=== PATIENT | female | born 1985 | race African-American/Black ===

== ENCOUNTER 2016-11-23 22:57 | Inpatient (IN) | payer OTHER ==
--- NOTE | ~2016-11-23 | US67 ---
[facility] A Service of [facility] RADIOLOGY TEXT RESULTS PATIENT: ASHLIE CHOWDHURY LOCATION: A 225-01 : 85 UNIT #: [id number] AGE: [address]: Felicia Beltrán MD SEX: F ORDER DR: [id number] [facility] [address] [place], [place] [address] [id number] I MR#: [id number] #: [id number] NAME: ASHLIE CHOWDHURY : 1985 SEX: F STUDY DATE/TIME: 11/24/2016 9:19 UNIT: [facility] ROOM: [facility] STUDY DESCRIPTION: US Gallbladder Attending Physician: Felicia Beltrán M.D. Ordering Physician: Leroy Velazquez M.D. Primary Care Physician: Primary Care Physician No MEDICAL IMAGING REPORT This report is preliminary unless electronic signature is present EXAM Right upper quadrant ultrasound INDICATION Right upper quadrant pain, nausea and vomiting for 2 weeks but worse in the last 3 days. TECHNIQUE Buckley-scale imaging in the right upper quadrant structures was performed and compared with CT of the abdomen and pelvis from earlier today. FINDINGS The liver is normal in echogenicity. There is no intrahepatic biliary ductal dilatation. The common duct is normal in size measuring about 4 mm. The gallbladder wall is thickened measuring up to 1.2 cm in maximal thickness. The prescription clerk reports a positive sonographic Del Rosario's sign. No shadowing gallstones are noted. The right kidney is within normal limits. Pancreas not visualized due to overlying bowel gas. IMPRESSION There is gallbladder wall thickening and a positive sonographic Del Rosario's sign. There were not any shadowing gallstones demonstrated however, when correlating with the findings on the CT from earlier today the findings on the ultrasound, particularly with the positive sonographic Del Rosario's sign, do raise concern for acute cholecystitis. Dictated by... Mike Campos M.D. THIS IS AN ELECTRONICALLY VERIFIED REPORT Mike Campos M.D. at 11/25/2016 2:19 PM [facility] A Service of [facility] RADIOLOGY TEXT RESULTS PATIENT: ASHLIE CHOWDHURY LOCATION: [facility] 225-01 : 85 UNIT #: [id number] AGE: [address]: Felicia Beltrán MD SEX: F ORDER DR: Emmett TD: 11/24/2016 23:08 JOB #: [id number] MEDICAL IMAGING REPORT Page 1 of 1 COPY
--- NOTE | ~2016-11-23 | HP ---
Unit #: [id number] #: [id number] Patient: ASHLIE CHOWDHURY [id number] [address] [place], [place] [address] [id number] I MR#: [id number] NAME: ASHLIE CHOWDHURY ROOM: 225 Age: 31 Sex: F Admission Date: 11/24/2016 : 1985 Attending Physician: Felicia Beltrán M.D. Primary Care Physician: No Primary Care Physician HISTORY AND PHYSICAL CHIEF COMPLAINT Abdominal pain. HISTORY OF PRESENT ILLNESS The patient states she has had 10 days of right upper quadrant pain. The first 8 days it was intermittent; however, over the past 2 days it has been constant and severe, associated with fevers, nausea and vomiting but no diarrhea, made better with pain medications provided in the emergency department. PAST MEDICAL HISTORY None. PAST SURGICAL HISTORY I and D of an abscess. SOCIAL HISTORY The patient smokes. Denies alcohol use but does admit to IV drug abuse. FAMILY HISTORY No significant past medical family history. ALLERGIES Benadryl. HOME MEDICATIONS None. REVIEW OF SYSTEMS A 10-point review of systems was obtained; negative except as per HPI. PHYSICAL EXAMINATION VITAL SIGNS: Temperature 98.3, pulse 93, blood pressure 127/88. GENERAL: This a 31-year-old female in no acute distress, appears stated age. HEENT: Pupils are equally round. Extraocular movements intact. Mucous membranes dry. NECK: Supple. No JVD. No lymphadenopathy. CARDIAC: Regular rate and rhythm. No murmurs, gallops or rubs. LUNGS: Clear to auscultation bilaterally. ABDOMEN: Diffusely tender to palpation, greatest in the right upper quadrant. She is nondistended, soft. EXTREMITIES: No clubbing, cyanosis or edema. They are warm and dry. PSYCHIATRIC: Alert and oriented x3. Affect is appropriate. Unit #: [id number] #: [id number] Patient: ASHLIE CHOWDHURY NEUROLOGIC: Cranial nerves II-XII intact grossly. The patient moves all extremities equally and with purpose. SKIN: No rashes, bruises or ulcers. MUSCULOSKELETAL: No muscle or joint pain. No muscle or joint swelling. DIAGNOSTIC STUDIES LABORATORIES: Patient's bilirubin is elevated at 5.8, direct 3.3, indirect 1.9, alkaline phosphatase 150, AST is 630, ALT is 731. White count is 12.9. IMAGING: CT of the abdomen shows acute cholecystitis. ASSESSMENT AND PLAN 1. Acute cholecystitis. Patient has been started on Zosyn by surgery. This will continue, and the patient will ultimately be taken for cholecystectomy. 2. Prophylaxis. Patient has been started on SCDs. 3. IV drug abuse. Patient has p.r.n. morphine for pain. Should she withdraw, consideration should be given to withdrawal protocol. 1. Dictated by Thiago Rivers M.D. ASHA/clemente TD: 11/25/2016 08:07 JOB #: [id number] HISTORY AND PHYSICAL Page 1 of 1 X Thiago Rivers MD X HISTORY AND PHYSICAL
--- NOTE | ~2016-11-23 | OR ---
Unit #: [id number] #: [id number] Patient: ASHLIE CHOWDHURY [id number] [address] [place], [place] [address] [id number] I MR#: [id number] NAME: ASHLIE CHOWHDURY ROOM: [facility] Date of Procedure: 11/25/2016 Admission Date: 11/24/2016 Surgeon: Ole Cannon M.D. : 1985 Attending Physician: Felicia Beltrán M.D. OPERATIVE REPORT PRIMARY CARE PHYSICIAN Thiago Rivers M.D. PREOPERATIVE DIAGNOSES The patient presented with history of mid sternal and upper abdominal pain along with elevated LFTs and ultrasound changes of acute cholecystitis. There is no biliary ductal dilation. The patient does have underlying hepatitis C. The purpose of the endoscopic retrograde cholangiopancreatography is to look for any common bile duct stones and clear the common bile duct of any stones. PROCEDURES PERFORMED Upper gastrointestinal endoscopy and endoscopic retrograde cholangiopancreatography. POSTOPERATIVE DIAGNOSES The patient has mild antral gastritis on a preliminary upper gastrointestinal endoscopy. Endoscopic retrograde cholangiopancreatography was normal with normal cholangiogram. The common bile duct was about 3 to 4 mm in size throughout. The common bile duct was swept with a 9 mm balloon and no debris or stones were seen or delivered. The patient had a normal occlusion cholangiogram. No sphincterotomy was performed. RECOMMENDATIONS The patient will undergo laparoscopic cholecystectomy tomorrow. Incidentally, the cystic duct was patent. SEDATION USED General anesthesia. DESCRIPTION OF PROCEDURE The patient was initially given MAC, but was quite agitated and was impossible to sedate with propofol. She was therefore intubated by Anesthesia and placed in appropriate left lateral decubitus position. A preliminary upper GI endoscopy was demonstrated pre-pyloric antral erosions and antral gastritis. The lateral viewing duodenoscope was then advanced through the oral cavity into the esophagus and advanced into the stomach. Pylorus was intubated in usual fashion. The scope was advanced in deep descending duodenum. Upon shortening the scope, major papilla and ampullary area was visualized en face. Using guidewire based cannulation, common bile duct was cannulated in the first attempt. The cholangiogram Unit #: [id number] #: [id number] Patient: ASLHIE CHOWDHURY was obtained, which appeared to show a normal common bile duct about 4 mm in size. We then passed a retrieval balloon and at 9 mm setting, the duct was swept 2 to 3 times. No filling defects or debris or stones were delivered. The cystic duct was widely patent. The gallbladder was now straight. The scope and the accessories were then withdrawn. The patient returned to recovery area. She tolerated the procedure without any postprocedure complications. Dictated by... Gayathri Durbin/kate TD: 11/26/2016 04:20 JOB #: [id number] CC: Thiago Rivers M.D. OPERATIVE REPORT Page 1 of 1 X Ole Cannon MD X PROCEDURE OPERATIVE NOTE
--- NOTE | ~2016-11-23 | CR84 ---
[facility] A Service of [facility] & [facility] RADIOLOGY TEXT RESULTS PATIENT: ASHLIE CHOWDHURY LOCATION: [facility] 225-01 : 85 UNIT #: [id number] AGE: [address]: Felicia Beltrán MD SEX: F ORDER DR: [id number] [facility] [address] [place], [place] [address] [id number] I MR#: [id number] Acc #: [id number] NAME: ASHLIE CHOWDHURY : 1985 SEX: F STUDY DATE/TIME: 11/25/2016 14:26 UNIT: [facility] ROOM: [facility] STUDY DESCRIPTION: CR ERCP Biliary and Pancr SI Attending Physician: Felicia Beltrán M.D. Ordering Physician: Ole Cannon M.D. Primary Care Physician: No Primary Care Physician MEDICAL IMAGING REPORT This report is preliminary unless electronic signature is present EXAM ERCP (interpretation only) HISTORY SUPPLIED Right upper quadrant pain and abnormal liver enzymes. Seven views are submitted. Total fluoroscopy time 57 seconds. Exam was performed by Dr. Cannon. The examination shows a normal injections of the common duct and filling of the gallbladder. The balloon sweep was performed. Please see Dr. Cannon's operative note. CONCLUSION Essentially normal common duct injection. Dictated by... Jerome Yates M.D. THIS IS AN ELECTRONICALLY VERIFIED REPORT Jerome Yates M.D. at 11/26/2016 7:29 AM MINOR/samuel TD: 11/25/2016 23:55 JOB #: [id number] MEDICAL IMAGING REPORT Page 1 of 1 COPY
--- NOTE | ~2016-11-23 | CO ---
Unit #: [id number] #: [id number] Patient: ASHLIE CHOWDHURY [id number] [address] [place], [place] [address] [id number] I MR#: [id number] NAME: ASHLIE CHOWDHURY ROOM: 225 Age: 31 Sex: F Admission Date: 11/24/2016 : 1985 Attending Physician: Felicia Beltrán M.D. Primary Care Physician: Primary Care Physician No Consultation Date: 11/24/2016 CONSULTATION REPORT PRIMARY CARE PHYSICIAN Thiago Rivers M.D. REASON FOR CONSULTATION Upper abdominal pain and abnormal LFTs. HISTORY OF PRESENT ILLNESS Ms. Chowdhury is a 31-year-old female, who lives with her father. The patient is not working. She presented with history of intense severe lower sternal and upper epigastric pain along with nausea and vomiting. The pain was quite intense and continuous. She has had similar episodes in the past few weeks that resolved spontaneously after a few hours. The patient does smoke cigarettes, does not drink alcohol, and use intravenous heroin almost on a daily basis. PAST MEDICAL HISTORY Significant for abscess in the right buttock which was drained, and history of intravenous drug use as mentioned above. PAST SURGICAL HISTORY Included abscess drainage as mentioned above. SOCIAL HISTORY Almost daily uses intravenous heroin. The patient does smoke a pack and a half daily. Does not drink alcohol. FAMILY HISTORY Coronary artery disease and cancer. ALLERGIES She is allergic to ciprofloxacin and does not take any home medications. REVIEW OF SYSTEMS Detailed review of organ systems does not reveal any recent weight loss. No history of fever, chills, or rigors. No history of headache, seizures, or syncope. No history of cough, expectoration, or hemoptysis. No history of dysuria, hematuria, or pyuria. No history focal seizures or extremity weakness. Rest of the review of organ systems is unremarkable. PHYSICAL EXAMINATION GENERAL: She is alert and oriented, and appears to be in minimal pain in the lower sternal area. VITAL SIGNS: Stable with a temperature of 97.9, pulse 70 per minute and regular, respiratory rate is 15, blood pressure 107/63. She weighs 159 Unit #: [id number] #: [id number] Patient: ASHLIE CHOWDHURY pounds. Her baseline weight has been about 170 to 180 pounds in the past. HEENT: She has mild pallor. There being mild tinge of icterus. No lymphadenopathy or peripheral edema. CARDIOVASCULAR: Normal heart sounds. No murmurs on auscultation. LUNGS: Reveal normal breath sounds. Good air entry. ABDOMEN: Soft. There being mild localized tenderness in the epigastric area and right in the upper quadrant. Liver and spleen are not palpable. Bowel sounds normal. Hernia sites were also normal. DIAGNOSTIC STUDIES LABORATORY RESULTS: Shows a white count of 12,900 with left shift, hemoglobin and hematocrit are normal and platelet count is also normal. Serum chemistry shows a normal BUN and creatinine, and electrolytes, with the peak abnormalities includes total bilirubin of 5.8, baseline bilirubin was 0.5. Peak AST and ALT are 730 and 805 respectively and these baseline values were normal couple of years ago. Alkaline phosphatase is 167 and again baseline was normal. Lipase is normal. The tox screen is positive for opiates. Urinalysis shows 1+ leukocyte esterase positive, and 2+ bacteria. The patient's hepatitis serology for hepatitis C is positive. The patient had a CT scan of the abdomen that suggest acute cholecystitis. An ultrasound is pending. CLINICAL IMPRESSION 1. The patient most likely has common bile duct stone along with cholecystitis. She needs clearance of common bile duct followed by laparoscopic cholecystectomy. The above plan was discussed with the patient and the procedure will be done tomorrow. 2. Background history of intravenous drug use. 3. Chronic hepatitis C, most likely acquired from intravenous drug use. 4. Urinary tract infection. MANAGEMENT PLAN We will obtain surgical consult for cholecystectomy after common bile duct clearance and endoscopic retrograde cholangiopancreatography will be done tomorrow. The pros and cons of procedure, potential risks, complications including possibility of perforation, bleeding, and complication related to sedation, and pancreatitis were discussed with the patient. Thank you for asking me to see Ms. Chowdhury. I appreciate the consult. Dictated by... Gayathri Durbin/kate TD: 11/25/2016 01:12 JOB #: [id number] Unit #: [id number] #: [id number] Patient: ASHLIE CHOWDHURY CONSULTATION REPORT Page 1 of 1 X Ole Cannon MD CONSULTATION REPORT
--- NOTE | ~2016-11-23 | CT2 ---
[facility] A Service of [facility] & [facility] RADIOLOGY TEXT RESULTS PATIENT: ASHLIE CHOWDHURY LOCATION: C2A 225- : 85 UNIT #: [id number] AGE: [address]: Felicia Beltrán MD SEX: F ORDER DR: [id number] [facility] [address] [place], [place] [address] [id number] I MR#: [id number] Acc #: [id number] NAME: ASHLIE CHOWDHURY : 1985 SEX: F STUDY DATE/TIME: 11/24/2016 02:03 UNIT: C2A ROOM: 225 STUDY DESCRIPTION: CT Abd and Pelv W Cont Attending Physician: Felicia Beltrán M.D. Ordering Physician: Marcel Vega M.D. Primary Care Physician: No Primary Care Physician MEDICAL IMAGING REPORT This report is preliminary unless electronic signature is present EXAM CT abdomen and pelvis, 11/24 at 02:03 INDICATIONS Nausea, vomiting, abdominal pain over the last 2 weeks but worse over the last 2 days. TECHNIQUE Axial images were obtained through the abdomen and pelvis following oral and IV contrast administration. Multiplanar reformats were obtained. Comparison made with CT abdomen from 01/16/[address] pelvis from 07/30/2015. This CT exam was performed with one or more of the following radiation dose reduction techniques: Automatic exposure control, adjustment of mA and/or kV according to patient size, and iterative reconstruction. FINDINGS ABDOMEN: Lung bases are clear. Gallbladder is markedly abnormal. There is gallbladder wall edema and gallbladder wall thickening. Findings are highly suspicious for acute cholecystitis. Follow up with gallbladder ultrasound and/or HIDA scan recommended. There is no biliary obstruction. Solid abdominal organs are normal. The GI tract is normal. No adenopathy identified. PELVIS: Urinary bladder is normal. Solid pelvic organs are normal. Feculent material is seen in distal small bowel loops, suggesting ileus. The lower colon and appendix appear normal. IMPRESSION 1. Markedly abnormal-appearing gallbladder with wall thickening. This is worrisome for acute cholecystitis. Follow up with gallbladder ultrasound and/or HIDA scan recommended. 2. Feculent material in multiple distal small bowel loops in the STS. [facility] A Service of [facility] & [facility] RADIOLOGY TEXT RESULTS PATIENT: ASHLIE CHOWDHURY LOCATION: C2A 225-01 : [birth year] UNIT #: [id number] AGE: [address]: Felicia Beltrán MD SEX: F ORDER DR: pelvis, suggesting an ileus. The colon and appendix appear normal. Dictated by... Homer Pimentel Jr., M.D. THIS IS AN ELECTRONICALLY VERIFIED REPORT Homer Pimentel Jr., M.D. at 11/24/2016 9:23 PM RICKY/jose TD: 11/24/2016 19:08 JOB #: [id number] MEDICAL IMAGING REPORT Page 1 of 1 COPY
--- NOTE | ~2016-11-23 | DS ---
Unit #: [id number] #: [id number] Patient: ASHLIE CHOWDHURY [id number] [address] [place], [place] [address] [id number] I MR#: [id number] NAME: ASHLIE CHOWDHURY ROOM: 225 Age: Sex: F Admission Date: 11/24/2016 : 1985 Discharge Date: 11/25/2016 Attending Physician: Felicia Beltrán M.D. Primary Care Physician: Primary Care Physician No DISCHARGE SUMMARY PRINCIPAL DIAGNOSES 1. Acute cholecystitis. 2. Presumed obstructive jaundice. 3. Transaminitis secondary to #1 and #2. 4. Intravenous drug abuse, namely heroin. 5. Tobaccoism. CONSULTANTS 1. Dr. Cannon, gastroenterology. 2. LSA. PROCEDURES ERCP on November 25, 2016, with mild antral gastritis on EGD. Common bile duct was 3-4 mm. Common bile duct was swept without any evidence of debris or stone. Normal occlusion cholangiogram. No sphincterotomy performed. DIAGNOSTIC STUDIES IMAGING: Right upper quadrant ultrasound on November 24, 2016, with gallbladder wall thickening and positive sonographic Del Rosario sign. No evidence of gallstones, however. CT of the abdomen and pelvis with contrast on November 24, 2016, with abnormal appearing gallbladder with wall thickening concerning for cholecystitis. Feculent material in multiple distal small bowel loops concerning for ileus. CLINICAL HISTORY AND HOSPITAL COURSE Ms. Chowdhury is a 31-year-old, -[place] female who presents to the emergency department with complaints of abdominal pain. Please refer to H and P for further details. Blood work in the emergency department revealed an elevated bilirubin of 5.8 in addition to significant transaminitis. White blood cell count was mildly elevated at 13,000. CT scan of the abdomen and pelvis revealed acute cholecystitis and patient was subsequently admitted. LSA was consulted initially. There were concerns about possible obstructive jaundice given patient's transaminitis and elevated bilirubin. Dr. Cannon was consulted and patient subsequently underwent ERCP. Fortunately, no obstructive stone was noted. There are plans for a laparoscopic cholecystectomy on November 27; however, following patient's ERCP, she ultimately decided she did not wish to stay and left the hospital against medical advice. No prescriptions were given. Unit #: [id number] #: [id number] Patient: ASHLIE CHOWDHURY Dictated by... Gayathri Ryder/brian TD: 11/27/2016 08:41 JOB #: [id number] DISCHARGE SUMMARY Page 1 of 1 X Gosia Sim MD X DISCHARGE SUMMARY
--- NOTE | ~2016-11-23 | CO ---
Unit #: [id number] #: [id number] Patient: ASHLIE CHOWDHURY [id number] [address] [place], [place] [address] [id number] I MR#: [id number] NAME: ASHLIE CHOWDHURY ROOM: 225 Age: 31 Sex: F Admission Date: 11/24/2016 : 1985 Attending Physician: Felicia Beltrán M.D. Consultation Date: 11/24/2016 CONSULTATION REPORT HISTORY OF PRESENT ILLNESS Ms. Chowdhury is a pleasant 31-year-old female with a several-day history of nausea, vomiting, fever, and abdominal pain, who subsequently developed jaundice. She came to the emergency room. A CT scan was consistent with acute cholecystitis with marked gallbladder wall thickening and pericholecystic fluid. She was noted to have markedly elevated liver chemistries with a total bilirubin of 5.8. Lipase was normal. Followup ultrasound confirmed acute cholecystitis. She has been seen by Dr. Cannon, who plans an ERCP in the morning. She denies any hematemesis or melena. PAST MEDICAL HISTORY Heroin abuse; previous buttock abscess, requiring incision, drainage and debridement. ALLERGIES She is allergic to ciprofloxacin and Benadryl. MEDICATIONS She is not currently on any prescription medications. SOCIAL HISTORY She smokes tobacco and has a history of IV drug abuse. FAMILY HISTORY She is unaware of any chronic or inheritable diseases. REVIEW OF SYSTEMS As above. PHYSICAL EXAMINATION VITAL SIGNS: Temperature is 98.1, pulse 80, respirations 15, blood pressure 97/58. GENERAL: She is awake, alert, oriented, cooperative, very pleasant. HEENT: Scleral icterus. Otherwise, unremarkable. CARDIAC: Regular rhythm. LUNGS: Clear. ABDOMEN: She guards in the upper abdomen, particularly in the right upper quadrant and there is a mass effect on deep palpation. She has involuntary guarding, but no rebound. EXTREMITIES: No edema. NEUROLOGIC: Grossly intact. SKIN: No skin rash or lesions. DIAGNOSTIC STUDIES Unit #: [id number] #: [id number] Patient: ASHLIE CHOWDHURY LABORATORY RESULTS: Basic metabolic panel was within normal limits. Total bilirubin is 5.8, AST 630, ALT 731, alkaline phosphatase 150. Lipase 19. White count 12,900, hemoglobin 12.7, platelets 199,000. Urinalysis shows 10 to 25 white cells, but otherwise is nitrite negative. She does have a bile in her urine. IMAGING STUDIES: CT scan and ultrasound were reviewed. ASSESSMENT AND PLAN Acute cholecystitis with obstructive jaundice. She is scheduled for ERCP in the morning to clear her common bile duct. She has marked wall thickening and pericholecystic fluid consistent with severe acute cholecystitis. She will need a post ERCP cholecystectomy. Because of the severity of her cholecystitis even though she has had no prior abdominal surgery, she will be at an increased risk for open cholecystectomy. I have discussed this with the patient. We will follow her up after her ERCP has been completed. Dictated by... Gayathri Meeks/kate TD: 11/24/2016 18:36 JOB #: [id number] CONSULTATION REPORT Page 1 of 1 X Homer Ochoa MD X CONSULTATION REPORT
[~2016-11-23 22:57] MED LIST: BACTRIM DS TABL1 TA1 PO; CIPRO PO; COL-RITE50 MG PO; DAKIN'S MODIF1000 ML EXT; NO MEDICATIONS; OMNICEF PO; PERCOCET 10/3251 TAB PO; PERCOCET5/325 PO; PYRIDIUM PO; SILVADENE TOP; VICODIN 5/500 T1 TAB PO; VOLTAREN75 MG PO; ZYVOX600 MG PO
[2016-11-23 23:55] LABS: URINE SOURCE CLEAN CATCH
[2016-11-23 23:58] LABS: BASOPHIL# 0.1 X10e3 (0-0.3); BASOPHIL% 0.5 % (0-2.5); EOSINOPHIL# 0.1 X10e3 (0-0.7); EOSINOPHIL% 0.9 % (0.0-7.0); HEMATOCRIT 41.2 % (35.0-45.0); HEMOGLOBIN 13.5 gm/dL (12.0-16.0); LYMPHOCYTE# 3.2 X10e3 (1.0-3.5); LYMPHOCYTE% 27.7 % (17.0-45.0); MEAN CELL VOLUME 77.9 FL (83-96); MEAN CORPUSCULAR HEMOGLOBIN 25.5 PG (28-34); MEAN CORPUSCULAR HGB CONC 32.8 g/dL (30-36); MONOCYTE# 0.7 X10e3 (0-1.0); MONOCYTE% 5.8 % (3.0-12.0); NEUTROPHIL# 7.5 X10e3 (1.5-7.1); NEUTROPHIL% 65.1 % (40-75); PLATELET COUNT 216 X10e3 (140-420); RED BLOOD COUNT 5.28 X10e (3.90-5.30); RED CELL DISTRIBUTION WIDTH 17.9 % (11.0-15.5); WHITE BLOOD COUNT 11.5 X10e3 (4.0-10.5)
[2016-11-23 23:59] LABS: URINE APPEARANCE CLOUDY; URINE BLOOD NEG (NEG); URINE COLOR DK YELLOW; URINE GLUCOSE NEG (NEG); URINE KETONE NEG (NEG); URINE LEUKOCYTE ESTERASE 1+ (NEG); URINE NITRATE NEG (NEG); URINE PH 6.5 (5-8); URINE PROTEIN NEG (NEG); URINE SPECIFIC GRAVITY 1.021 (1.003-1.035)
[2016-11-24 00:01] LABS: DIFF IND NO
[2016-11-24 00:02] LABS: CULTURE INDICATED? YES; U HYALINE CASTS AUWI 0-2 /[LPF]; URINE BACTERIA AUWI 2+ (NEGATIVE); URINE SQUAMOUS EPITHELIAL CELL FEW /[HPF]
[2016-11-24 00:05] LABS: URINE BILIRUBIN POS (NEG)
[2016-11-24 00:26] LABS: ALBUMIN SERUM 3.5 g/dL (3.5-5.0); BILIRUBIN, DIRECT 3.3 mg/dL (0.0-0.2); BILIRUBIN,INDIRECT 1.9 mg/dL (0.0-0.9); BILIRUBIN,TOTAL 5.2 mg/dL (0.2-2.0); BUN/CREATININE RATIO 11.66; CALCIUM SERUM 8.5 mg/dL (8.4-10.2); CREATININE SERUM 0.6 mg/dL (0.6-1.4); GLOM FILT RATE Estimated 140.8 mL/min (>60); POTASSIUM 3.5 mmol/L (3.5-5.1)
[2016-11-24 07:39] LABS: BASOPHIL% 0.2 % (0-2.5); EOSINOPHIL# 0.2 X10e3 (0-0.7); EOSINOPHIL% 1.4 % (0.0-7.0); HEMATOCRIT 39.6 % (35.0-45.0); HEMOGLOBIN 12.7 gm/dL (12.0-16.0); LYMPHOCYTE# 3.1 X10e3 (1.0-3.5); LYMPHOCYTE% 24.2 % (17.0-45.0); MEAN CELL VOLUME 79.8 FL (83-96); MEAN CORPUSCULAR HEMOGLOBIN 25.5 PG (28-34); MEAN CORPUSCULAR HGB CONC 31.9 g/dL (30-36); MEAN PLATELET VOLUME 9.7 FL (6.5-11.5); MONOCYTE# 0.6 X10e3 (0-1.0); MONOCYTE% 4.6 % (3.0-12.0); NEUTROPHIL% 69.6 % (40-75); PLATELET COUNT 199 X10e3 (140-420); RED BLOOD COUNT 4.97 X10e (3.90-5.30); WHITE BLOOD COUNT 12.9 X10e3 (4.0-10.5)
[2016-11-24 07:44] LABS: DIFF IND NO
[2016-11-24 08:16] LABS: ALBUMIN SERUM 3.3 g/dL (3.5-5.0); BILIRUBIN,TOTAL 5.8 mg/dL (0.2-2.0); CALCIUM SERUM 8.5 mg/dL (8.4-10.2); CREATININE SERUM 0.5 mg/dL (0.6-1.4); GLOM FILT RATE Estimated 149.5 mL/min (>60); PROTEIN TOTAL SERUM 7.4 g/dL (6.0-8.3)
[2016-11-25 05:03] LABS: HEMATOCRIT 37.3 % (35.0-45.0); HEMOGLOBIN 12.2 gm/dL (12.0-16.0); MEAN CELL VOLUME 78.7 FL (83-96); MEAN CORPUSCULAR HEMOGLOBIN 25.8 PG (28-34); MEAN CORPUSCULAR HGB CONC 32.8 g/dL (30-36); MEAN PLATELET VOLUME 9.5 FL (6.5-11.5); RED BLOOD COUNT 4.74 X10e (3.90-5.30); RED CELL DISTRIBUTION WIDTH 17.7 % (11.0-15.5); WHITE BLOOD COUNT 5.9 X10e3 (4.0-10.5)
[2016-11-25 05:50] LABS: ALBUMIN SERUM 2.8 g/dL (3.5-5.0); ALKALINE PHOSPHATASE 123 U/L (32-92); ALT (SGPT) 510 U/L (10-40); AMYLASE 20 U/L (0-46); AST (SGOT) 433 U/L (10-42); BILIRUBIN,TOTAL 5.6 mg/dL (0.2-2.0); CALCIUM SERUM 8.3 mg/dL (8.4-10.2); CARBON DIOXIDE 25 mmol/L (22-31); CHLORIDE 107 mmol/L (100-111); CREATININE SERUM 0.5 mg/dL (0.6-1.4); GLOM FILT RATE Estimated 149.5 mL/min (>60); GLUCOSE FASTING 92 mg/dL (70-110); LIPASE 17 U/L (22-51); PROTEIN TOTAL SERUM 6.6 g/dL (6.0-8.3); SODIUM 138 mmol/L (135-145)
[2016-11-25 05:51] LABS: BLOOD UREA NITROGEN <5 mg/dL (9-23)
[2016-11-25 13:30] LABS: IRON SERUM 124 ug/dL (28-170); TOTAL IRON BINDING CAPACITY 360 ug/dL (269-535); TRANSFERRIN 257 mg/dL (192-382); TRANSFERRIN SATURATION 34 % (20-50)
[2016-11-28 17:18] LABS: HA AB IGM (HEPPAN) Nonreactive (()); HB CORE AB IGM (HEPPAN) Reactive (Nonreactive); HB S AG (HEPPAN) Reactive (Nonreactive); HEP C AB (HEPPAN) Reactive (Nonreactive)
== END 2016-11-25 21:55 | disposition left against medical advice (07) | DRG 444 ==
LOC: CED 22:57 → CEDOF 11-24 03:08 → CED 11-24 03:36 → CEDOF 11-24 05:14 → C2A 11-24 05:14
PROVIDERS: Emergency Medicine; Internal Medicine; Internal Medicine Gastroenterology
PROC: 0F798ZZ Dilation of Common Bile Duct, Via Natural or Artificial Opening Endoscopic (ICD-10-PCS; principal; 2016-11-25 14:27)
PROC: 0DJ08ZZ Inspection of Upper Intestinal Tract, Via Natural or Artificial Opening Endoscopic (ICD-10-PCS; 2016-11-25 14:27)
DX: K81.0 Acute cholecystitis (principal); K83.1 Obstruction of bile duct; N39.0 Urinary tract infection, site not specified; R74.0 Nonspecific elevation of levels of transaminase and lactic acid dehydrogenase [LDH]; F11.10 Opioid abuse, uncomplicated; K29.70 Gastritis, unspecified, without bleeding; B18.2 Chronic viral hepatitis C; F17.210 Nicotine dependence, cigarettes, uncomplicated; Z88.1 Allergy status to other antibiotic agents; Z88.8 Allergy status to other drugs, medicaments and biological substances; Z82.49 Family history of ischemic heart disease and other diseases of the circulatory system; Z80.9 Family history of malignant neoplasm, unspecified; Z53.21 Procedure and treatment not carried out due to patient leaving prior to being seen by health care provider
CPT/HCPCS: 36415; 74177; 74330; 76705; 80048; 80053; 80074; 80076; 81003; 82150; 83540; 83550; 83690; 84703; 85025; 85027; 87086; 87522; 96361; 96374; 99291; C9113; J0295; J2250; J2270; J2405; J2543; J2710; Q9967

== ENCOUNTER 2017-01-27 15:59 | Emergency (ER) | payer OTHER ==
[~2017-01-27] VITALS: Ht 167.6 cm; Wt 77.1 kg
--- NOTE | ~2017-01-27 | CT4 ---
[facility] A Service of [facility] RADIOLOGY TEXT RESULTS PATIENT: ASHLIE CHOWDHURY LOCATION: [facility] : 85 UNIT #: [id number] AGE: [address]: Alvin Begum MD SEX: F ORDER DR: [id number] [facility] [address] [place], [place] [address] [id number] E MR#: [id number] Acc #: [id number] NAME: SAHLIE CHOWDHURY : 1985 SEX: F STUDY DATE/TIME: 01/27/2017 18:03 UNIT: [facility] ROOM: STUDY DESCRIPTION: CT Abd and Pelv Wo Cont Attending Physician: Alvin Begum M.D. Ordering Physician: Alvin Begum M.D. Primary Care Physician: No Primary Care Physician MEDICAL IMAGING REPORT This report is preliminary unless electronic signature is present EXAM CT abdomen and pelvis without contrast HISTORY Right flank pain since yesterday. TECHNIQUE CT abdomen and pelvis was performed without contrast. This CT exam was performed with one or more of the following radiation dose reduction techniques: Automatic exposure control, adjustment of mA and/or kV according to patient size, and iterative reconstruction. FINDINGS CT ABDOMEN: No renal calculi. No hydronephrosis or perinephric stranding. The liver is unremarkable. Small amount of gallbladder sludge. Gallbladder is partly contracted. No biliary dilatation. The spleen, pancreas, and adrenal glands are normal. Normal caliber abdominal aorta. No bowel dilatation. CT PELVIS: Normal appendix. There is a 4 mm metal foreign body in the right pelvis, probably in the cecum. This is probably an ingested foreign body. The uterus and adnexa are unremarkable. Urinary bladder is normal. IMPRESSION 1. No acute findings in the abdomen or pelvis. 2. No urinary calculi or obstruction. 3. Normal appendix. 4. Small punctate metal foreign body in the right pelvis is probably within the cecum and is probably an ingested foreign body. Dictated by... Joaquín Dawson M.D. [facility] A Service of [facility] RADIOLOGY TEXT RESULTS PATIENT: ASHLIE CHOWDHURY LOCATION: [facility] : 85 UNIT #: [id number] AGE: [address]: Alvin Begum MD SEX: F ORDER DR: THIS IS AN ELECTRONICALLY VERIFIED REPORT Joaquín Dawson M.D. at 01/28/2017 2:20 PM BERTHA/nabor TD: 01/28/2017 12:28 JOB #: [id number] MEDICAL IMAGING REPORT Page 1 of 1 COPY
[2017-01-27 16:45] LABS: URINE SOURCE CLEAN CATCH
[2017-01-27 16:50] LABS: URINE APPEARANCE CLEAR; URINE BILIRUBIN NEG (NEG); URINE BLOOD NEG (NEG); URINE COLOR YELLOW; URINE GLUCOSE NEG (NEG); URINE KETONE TRACE (NEG); URINE LEUKOCYTE ESTERASE TRACE (NEG); URINE NITRATE NEG (NEG); URINE PROTEIN NEG (NEG); URINE SPECIFIC GRAVITY 1.025 (1.003-1.035)
[2017-01-27 16:51] LABS: CULTURE INDICATED? YES; URBCS1 AUWI 0-2 /[HPF] (0-2); URINE BACTERIA AUWI 1+ (NEGATIVE); URINE SQUAMOUS EPITHELIAL CELL FEW /[HPF]
[2017-01-27 17:22] LABS: BASOPHIL% 0.2 % (0-2.5); EOSINOPHIL% 0.4 % (0.0-7.0); HEMATOCRIT 39.4 % (35.0-45.0); HEMOGLOBIN 12.6 gm/dL (12.0-16.0); LYMPHOCYTE# 2.2 X10e3 (1.0-3.5); LYMPHOCYTE% 18.7 % (17.0-45.0); MEAN CELL VOLUME 82.5 FL (83-96); MEAN CORPUSCULAR HEMOGLOBIN 26.4 PG (28-34); MEAN PLATELET VOLUME 8.5 FL (6.5-11.5); MONOCYTE# 0.6 X10e3 (0-1.0); MONOCYTE% 5.2 % (3.0-12.0); NEUTROPHIL% 75.5 % (40-75); PLATELET COUNT 171 X10e3 (140-420); RED BLOOD COUNT 4.78 X10e (3.90-5.30); WHITE BLOOD COUNT 11.9 X10e3 (4.0-10.5)
[2017-01-27 17:24] LABS: DIFF IND NO
[2017-01-27 17:50] LABS: ALBUMIN SERUM 3.5 g/dL (3.5-5.0); BILIRUBIN, DIRECT 0.1 mg/dL (0.0-0.2); BILIRUBIN,INDIRECT 0.3 mg/dL (0.0-0.9); BILIRUBIN,TOTAL 0.4 mg/dL (0.2-2.0); BUN/CREATININE RATIO 11.66; CREATININE SERUM 0.6 mg/dL (0.6-1.4); GLOM FILT RATE Estimated 140.8 mL/min (>60); POTASSIUM 3.3 mmol/L (3.5-5.1); PROTEIN TOTAL SERUM 7.2 g/dL (6.0-8.3)
== END 2017-01-27 19:25 | disposition home or self-care (01) ==
LOC: CED 15:59
PROVIDERS: Emergency Medicine
DX: R10.9 Unspecified abdominal pain (principal); F41.9 Anxiety disorder, unspecified; F32.9 Major depressive disorder, single episode, unspecified; F17.210 Nicotine dependence, cigarettes, uncomplicated; Z88.1 Allergy status to other antibiotic agents; Z88.8 Allergy status to other drugs, medicaments and biological substances
CPT/HCPCS: 36415; 74176; 80048; 80076; 81003; 83690; 84703; 85025; 87086; 99284; J1885

== ENCOUNTER 2017-01-30 05:16 | Emergency (ER) | payer OTHER ==
[~2017-01-30] VITALS: Ht 170.2 cm; Wt 77.1 kg
--- NOTE | ~2017-01-30 | CR7 ---
[facility] A Service of [facility] RADIOLOGY TEXT RESULTS PATIENT: ASHLIE CHOWDHURY LOCATION: [facility] : 85 UNIT #: [id number] AGE: [address]: Ryan Leal MD SEX: F ORDER DR: [id number] [facility] [address] [place], [place] [address] [id number] E MR#: [id number] Acc #: [id number] NAME: ASHLIE CHOWDHURY : 1985 SEX: F STUDY DATE/TIME: 01/30/2017 6:25 UNIT: [facility] ROOM: STUDY DESCRIPTION: CR Abdomen Single AP View Attending Physician: Ryan Leal M.D. Ordering Physician: Ryan Leal M.D. Primary Care Physician: No Primary Care Physician MEDICAL IMAGING REPORT This report is preliminary unless electronic signature is present EXAM Abdomen, 01/30/2017. HISTORY Recent endoscopy. Lower back pain for 3 days. Evaluate for foreign body. FINDINGS Supine view of the abdomen was obtained. The bowel gas pattern is normal. The bones are normal. There is a metal object superimposed upon the right side of the pelvis, just below the sacroiliac joint. It is roughly square, but it does not have smooth margins. It is about 5 mm in diameter. It was present an old CT scan, 01/27/2017, but not present on 11/24/2016. IMPRESSION 1. Roughly 5-mm dense metal object in the right side of the pelvis as well as the sacroiliac joint. It was seen on a CT scan, 01/27/2017, but not on a CT scan, 11/24/2016. It has not moved significantly since the study from 3 days ago. 2. Otherwise, the study is normal. Dictated by... Arnie Capone M.D. THIS IS AN ELECTRONICALLY VERIFIED REPORT Arnie Capone M.D. at 01/30/2017 2:14 PM JOSE/maeve TD: 01/30/2017 12:24 JOB #: [id number] [facility] A Service of [facility] RADIOLOGY TEXT RESULTS PATIENT: ASHLIE CHOWDHURY LOCATION: [facility] #: [id number] : 85 UNIT #: [id number] AGE: [address]: Ryan Leal MD SEX: F ORDER DR: MEDICAL IMAGING REPORT Page 1 of 1 COPY
--- NOTE | ~2017-01-30 | MR112 ---
[facility] A Service of [facility] RADIOLOGY TEXT RESULTS PATIENT: ASHLIE CHOWDHURY LOCATION: [facility] : 85 UNIT #: [id number] AGE: [address]: Ryan Leal MD SEX: F ORDER DR: [id number] [facility] [address] [place], [place] [address] [id number] E MR#: [id number] Acc #: [id number] NAME: ASHLIE CHOWDHURY : 1985 SEX: F STUDY DATE/TIME: 01/30/2017 9:39 UNIT: [facility] ROOM: STUDY DESCRIPTION: MR Lumbar WWo Contrast Attending Physician: Ryan Leal M.D. Ordering Physician: Ryan Leal M.D. Primary Care Physician: Primary Care Physician No MRI CENTER REPORT This report is preliminary unless electronic signature is present. EXAM Lumbar spine MRI with and without HISTORY Pain. 31-year-old female patient with a history of back pain for 3 days that radiates down right leg. Pain became worse on 01/29/2017. There is concern for possible abscess. Patient is an Opium addict and she has apparent had surgery to a wound to the right lower back and MRSA, but the time when this occurred is not apparent to me in the patient's history. Evaluate for possible diskitis/epidural abscess. COMMENT MRI of the lumbar spine performed prior to and following intravenous administration of 15 mL of MultiHance. There is some motion limitation of the study. Sagittal alignment is normal. There is mild disc desiccation at L5-S1 with mild loss of intervertebral disc height. There is nothing to suggest diskitis. There is abnormal soft tissue edema seen in the right side posterior paraspinous musculature extending from about L1-2 intervertebral disc level to the lower aspect of S1. It is about 12.9 cm in length. It is centered in the paraspinous musculature approximately at the level of L3-4 to L4-5 where it measures about 3.7 cm in AP dimension. There is probably some mild marrow edema in the right side posterior elements. The edematous tissue shows some enhancement with contrast administration. No drainable fluid collection is appreciated. There is probably a small amount of fluid or phlegmonous change at the posterior aspect of the right side L4-5 facet joint. There is fluid in this facet joint and it is suspected that this is an infected facet. Small foci of likely rim-enhancing fluid seen posterior to L4-5 facet and to the lamina of L5 on the right. Largest of these areas is about 10 mm in diameter. There are probably other punctate areas of rim-enhancing fluid or STS. [facility] A Service of [facility] RADIOLOGY TEXT RESULTS PATIENT: ASHLIE CHOWDHURY LOCATION: [facility] : 85 UNIT #: [id number] AGE: [address]: Ryan Leal MD SEX: F ORDER DR: phlegmonous change. No drainable fluid collection is appreciated but the findings together with the clinical presentation are concerning for areas of cellulitis with phlegmonous change and early abscess formation in the right-sided posterior paraspinous tissue with likely associated septic facet arthritis at least at the L4-5 level and possibly 3-4 level. There is fluid in each of these facet joints. Also concern for a small rim-enhancing fluid collection anterior to the upper aspect of the right side L4-5 facet joint within the superior aspect of the right L4-5 foramen. This structure is about 8 mm in diameter. It could be a synovial cyst but if the joint is infected it is concerning for a small infected fluid collection. Please correlate for clinical evidence of mass effect on the right L4 nerve root. The conus medullaris terminates around L2 and is normal. At L1-2, no significant abnormality. At L2-3, no significant abnormality. At L3-4, minimal disc bulging. No canal stenosis. There is mild facet hypertrophy bilaterally with some ligamentum flavum thickening and as noted above there is a small amount of increased fluid appreciated in the right side L3-4 facet joint inferiorly best seen on the sagittal STIR sequence. This could reflect some involvement with septic arthritis. There is no canal stenosis. There is no foraminal impingement. At L4-5, as discussed above I am concerned that there is infection of the right-sided L4-5 facet joint with areas of adjacent rim-enhancing small fluid collections and myositis. There is moderate ligamentum flavum thickening bilaterally. There is probably lijr-gm-jwidbxft preexisting degenerative arthritis in the facet joints. There is a mild concentric disc bulge. The degenerative disease results in mild canal stenosis and mass effect on left greater than right lateral recess. There is some extension into foramina and there is approximately moderate right and osra-is-hdirftia left-side foraminal narrowing. On the right side, the tissue changes related to probable infection contribute to the foraminal compromise. At L5-S1, there is mild facet hypertrophy. There is mild broad-based posterior disc protrusion. There is mild effacement of the anterior thecal sac and mild mass effect on the left lateral recess. No central canal stenosis. There is mild left greater than right-sided foraminal narrowing. IMPRESSION 1. This is an abnormal examination. There is no epidural abscess. There is however concern for myositis involving the right side posterior paraspinous musculature extending from about L1-2 to S1. This is probably centered at the L4-5 facet joint on the right and I suspect that this is an infected facet joint. Adjacent to it, there are some STS. [facility] A Service of [facility] RADIOLOGY TEXT RESULTS PATIENT: ASHLIE CHOWDHURY [facility] #: [id number] : 85 UNIT #: [id number] AGE: [address]: Ryan Leal MD SEX: F ORDER DR: small areas of rim-enhancing fluid. Largest up to about a centimeter which are worrisome for small abscesses or areas of phlegmonous change. These are within the paraspinous musculature on the right side adjacent to the facet joint. There is also 1 of these rim-enhancing fluid collections seen more anteriorly impinging upon the right L4-5 foramen in the expected location of the right L4 root. None of these is of sufficient size to be percutaneously drainable. There is nothing to suggest diskitis. 2. There is mild degenerative disease present and there is mild degenerative canal stenosis at the L4-5 level. 3. Possible facet arthritis at the level of L3-4 on the right due to infection. STAT * RESULT Dictated by... Munira Chan M.D. THIS IS AN ELECTRONICALLY VERIFIED REPORT Munira Chan M.D. at 01/30/2017 12:40 PM PRECIOUS/sowmya TD: 01/30/2017 11:13 JOB #: [id number] MRI CENTER REPORT Page 1 of 1 COPY
[2017-01-30 07:28] LABS: URINE SOURCE CLEAN CATCH
[2017-01-30 07:34] LABS: BASOPHIL% 0.2 % (0-2.5); HEMOGLOBIN 12.6 gm/dL (12.0-16.0); LYMPHOCYTE# 1.3 X10e3 (1.0-3.5); LYMPHOCYTE% 6.1 % (17.0-45.0); MEAN CELL VOLUME 82.7 FL (83-96); MEAN CORPUSCULAR HEMOGLOBIN 26.1 PG (28-34); MEAN CORPUSCULAR HGB CONC 31.5 g/dL (30-36); MEAN PLATELET VOLUME 8.9 FL (6.5-11.5); MONOCYTE# 0.6 X10e3 (0-1.0); MONOCYTE% 2.9 % (3.0-12.0); NEUTROPHIL# 19.9 X10e3 (1.5-7.1); NEUTROPHIL% 90.8 % (40-75); PLATELET COUNT 198 X10e3 (140-420); RED BLOOD COUNT 4.84 X10e (3.90-5.30); RED CELL DISTRIBUTION WIDTH 15.3 % (11.0-15.5); WHITE BLOOD COUNT 21.9 X10e3 (4.0-10.5)
[2017-01-30 07:36] LABS: DIFF IND YES
[2017-01-30 07:41] LABS: URINE APPEARANCE CLEAR; URINE BILIRUBIN NEG (NEG); URINE BLOOD NEG (NEG); URINE COLOR YELLOW; URINE GLUCOSE NEG (NEG); URINE KETONE NEG (NEG); URINE LEUKOCYTE ESTERASE NEG (NEG); URINE NITRATE NEG (NEG); URINE PH 6.5 (5-8); URINE PROTEIN NEG (NEG); URINE SPECIFIC GRAVITY 1.009 (1.003-1.035); URINE UROBILINOGEN 0.2 MG/DL (NEG)
[2017-01-30 07:44] LABS: ALBUMIN SERUM 3.2 g/dL (3.5-5.0); BILIRUBIN, DIRECT 0.2 mg/dL (0.0-0.2); BILIRUBIN,INDIRECT 0.3 mg/dL (0.0-0.9); BILIRUBIN,TOTAL 0.5 mg/dL (0.2-2.0); BUN/CREATININE RATIO 13.33; CALCIUM SERUM 8.9 mg/dL (8.4-10.2); CREATININE SERUM 0.6 mg/dL (0.6-1.4); GLOM FILT RATE Estimated 140.8 mL/min (>60); POTASSIUM 3.6 mmol/L (3.5-5.1); PROTEIN TOTAL SERUM 7.2 g/dL (6.0-8.3)
[2017-01-30 07:53] LABS: CULTURE INDICATED? NO
[2017-01-30 08:07] LABS: PLATELET ESTIMATE NORMAL (NORMAL); RBC NORMAL YES
== END 2017-01-30 14:00 | disposition left against medical advice (07) ==
LOC: CED 05:16
PROVIDERS: Emergency Medicine
DX: G06.1 Intraspinal abscess and granuloma (principal); F17.200 Nicotine dependence, unspecified, uncomplicated
CPT/HCPCS: 36415; 72158; 74000; 80048; 80076; 81003; 83605; 84703; 85025; 87040; 96365; 96366; 96367; 96375; 99284; A9577; J0696; J1170; J1885; J2930; J3370

== ENCOUNTER 2017-03-03 12:54 | Emergency (ER) | payer OTHER ==
[~2017-03-03] VITALS: Ht 167.6 cm; Wt 74.8 kg
--- NOTE | ~2017-03-03 | CR72 ---
[facility] A Service of [facility] & [facility] RADIOLOGY TEXT RESULTS PATIENT: ASHLIE CHOWDHURY LOCATION: [facility] : 85 UNIT #: [id number] AGE: [address]: Leroy Velazquez MD SEX: F ORDER DR: [id number] [facility] [address] [place], [place] [address] [id number] E MR#: [id number] Acc #: [id number] NAME: ASHLIE CHOWDHURY : 1985 SEX: F STUDY DATE/TIME: 03/03/2017 13:48 UNIT: [facility] ROOM: STUDY DESCRIPTION: CR Chest Single View Portable Attending Physician: Leroy Velazquez M.D. Ordering Physician: Homer Holt M.D. Primary Care Physician: Primary Care Physician No MEDICAL IMAGING REPORT This report is preliminary unless electronic signature is present EXAM Portable chest, 03/03 INDICATIONS Weakness. Feels like chest is going to burst open. Patient thinks her heroin had methamphetamine in it. Shortness of air. Symptoms today. FINDINGS AP portable chest compared with 01/16/2009. Cardiac and mediastinal contours are normal. Lung volumes are low and there is some atelectasis in the bases. No pneumothorax. IMPRESSION Low volume inspiration with some mild bibasilar atelectasis. Dictated by... Homer Pimentel Jr., M.D. THIS IS AN ELECTRONICALLY VERIFIED REPORT Homer Pimentel Jr., M.D. at 03/04/2017 7:58 AM RICKY/jose TD: 03/04/2017 01:51 JOB #: [id number] MEDICAL IMAGING REPORT Page 1 of 1 COPY
--- NOTE | ~2017-03-03 | EKG ---
PATIENT: ASHLIE CHOWDHURY UNIT #: [id number] Ventricular Rate: 121 BPM Atrial Rate: 121 BPM P-R Interval: 124 ms QRS Duration: 92 ms Q-T Interval: 338 ms QTC Calculation(Bezet): 479 ms P [place]: 65 degrees Calculated R [place]: 34 degrees Calculated T [place]: 19 degrees Diagnosis Line: Sinus tachycardia Diagnosis Line: Moderate voltage criteria for LVH, may be normal Diagnosis Line: variant Diagnosis Line: Borderline ECG Diagnosis Line: No previous ECGs available Diagnosis Line: Confirmed by SEUN ZARAGOZA MD ([id number]) on 03/03/2017 Diagnosis Line: 10:15:42 PM INTERPRETING MD: NIK IRWIN
[2017-03-03 13:55] LABS: POC - CKMB 1.3 ng/mL (0.0-7.9); POC - TROPONIN <0.05 ng/mL (<=0.05)
[2017-03-03 14:16] LABS: BASOPHIL% 0.2 % (0-2.5); EOSINOPHIL% 0.5 % (0.0-7.0); HEMATOCRIT 34.6 % (35.0-45.0); HEMOGLOBIN 11.4 gm/dL (12.0-16.0); LYMPHOCYTE# 0.9 X10e3 (1.0-3.5); LYMPHOCYTE% 12.8 % (17.0-45.0); MEAN CELL VOLUME 82.5 FL (83-96); MEAN CORPUSCULAR HEMOGLOBIN 27.2 PG (28-34); MONOCYTE# 0.4 X10e3 (0-1.0); MONOCYTE% 5.2 % (3.0-12.0); NEUTROPHIL% 81.3 % (40-75); PLATELET COUNT 229 X10e3 (140-420); WHITE BLOOD COUNT 7.4 X10e3 (4.0-10.5)
[2017-03-03 14:21] LABS: DIFF IND NO
[2017-03-03 14:37] LABS: ALBUMIN SERUM 4.3 g/dL (3.5-5.0); BILIRUBIN, DIRECT 0.1 mg/dL (0.0-0.2); BILIRUBIN,INDIRECT 0.6 mg/dL (0.0-0.9); BILIRUBIN,TOTAL 0.7 mg/dL (0.2-2.0); BUN/CREATININE RATIO 5.55; CALCIUM SERUM 9.6 mg/dL (8.4-10.2); CREATININE SERUM 0.9 mg/dL (0.6-1.4); GLOM FILT RATE Estimated 98.8 mL/min (>60); POTASSIUM 3.1 mmol/L (3.5-5.1); PROTEIN TOTAL SERUM 8.9 g/dL (6.0-8.3)
[2017-03-03 15:58] LABS: AMPHETAMINE NEG (NEG); BARBITURATES NEG (NEG); BENZODIAZEPINES NEG (NEG); COCAINE NEG (NEG); MARIJUANA NEG (NEG); OPIATES POS (NEG); TRICYCLIC ANTIDEPRESSANTS NEG (NEG); U METHADONE NEG (NEG)
[2017-03-03 16:00] LABS: POC - CKMB <1.0 ng/mL (0.0-7.9); POC - TROPONIN <0.05 ng/mL (<=0.05)
== END 2017-03-03 16:37 | disposition home or self-care (01) ==
LOC: CED 12:54
PROVIDERS: Emergency Medicine
DX: R06.00 Dyspnea, unspecified (principal); R00.0 Tachycardia, unspecified; F19.10 Other psychoactive substance abuse, uncomplicated; F17.200 Nicotine dependence, unspecified, uncomplicated; Z88.1 Allergy status to other antibiotic agents; Z88.8 Allergy status to other drugs, medicaments and biological substances
CPT/HCPCS: 36415; 71010; 80048; 80076; 80307; 82550; 82553; 84484; 84703; 85025; 85379; 93005; 96361; 96365; 99285; J0878